=== PATIENT | female | born 1980 | race Caucasian/White ===

== ENCOUNTER 2018-09-29 16:59 | Emergency (ER) | payer OTHER ==
[2018-09-29 17:31] VITALS: BP 130/89; PULSE 102; O2SAT 99
== END 2018-09-29 17:54 | disposition left against medical advice (07) ==
LOC: ED 16:59
DX: Z53.21 Procedure and treatment not carried out due to patient leaving prior to being seen by health care provider (principal)
CPT/HCPCS: 99283